=== PATIENT | male | born 1965 | race Caucasian/White ===

== ENCOUNTER 2019-09-14 21:58 | Emergency (ER) | payer MEDICAID, SELFPAY ==
[2019-09-14 22:01] VITALS: BP 122/79; PULSE 112; RESP 20; TEMP 36.6; O2SAT 94; BMI 27.3
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
[2019-09-15 01:45] VITALS: RESP 16
[2019-09-15 03:08] VITALS: RESP 16
[2019-09-15 04:25] VITALS: PULSE 75; RESP 18; O2SAT 96
[2019-09-15 05:04] VITALS: RESP 18
[2019-09-15 06:08] VITALS: PULSE 79; RESP 18; O2SAT 97
[2019-09-15 07:34] VITALS: PULSE 76; RESP 14; O2SAT 97
== END 2019-09-15 07:53 | disposition home or self-care (01) ==
PROVIDERS: Emergency Provider Emergency Medicine
DX: F10.129 Alcohol abuse with intoxication, unspecified (principal); S80.211A Abrasion, right knee, initial encounter; W19.XXXA Unspecified fall, initial encounter; Y92.481 Parking lot as the place of occurrence of the external cause
CPT/HCPCS: 99284

== ENCOUNTER 2019-09-15 11:01 | Emergency (ER) | payer MEDICAID, SELFPAY ==
[2019-09-14 22:01] VITALS: BMI 27.3
[2019-09-15] VITALS (11 sets, daily range): BP systolic 112–138; BP diastolic 71–98; PULSE 71–97; RESP 14–20; TEMP 36.6; O2SAT 94–99; BMI 27.3
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
[2019-09-15] MEDS: Haloperidol Lactate 5 MG/ML Vial IM (11:33)
[2019-09-15] MEDS: LORazepam 2 MG/ML Syringe 1 MG IV (11:40)
[2019-09-15 11:50] LABS: Absolute Lymphocyte Count 2.44 X10^3/uL (0.83-4.51); Absolute Neutrophil Count 1.6 X10^3/uL (2.0-7.7); Basophil# 0.03 X10^3/uL; Basophil% 0.6 % (0-1); Eosinophil# 0.13 X10^3/uL; Eosinophils% 2.6 % (0-5); Hematocrit 38.8 % (40-54); Hemoglobin 12.8 g/dL (13.0-16.5); Lymphocyte # 2.44 X10^3/ul (4.0); Lymphocyte % 49.5 % (19-41); Mean Corpuscular Hgb 29.1 pg (27.0-32.0); Mean Corpuscular Volume 88.2 fL (80-94); Mean Platelet Vol. 10.1 fl (6.2-12.0); Monocyte# 0.69 X10^3/uL; NRBC Flagged by Analyzer 0 % (0-5); Neutrophil # 1.63 X10^3/uL (2.7-7.7); Neutrophil % 33.1 % (47-70); POSITIVE COUNT YES; Platelet Count 72 K/mm3 (150-450); RBC Distribution Width CV 15.7 % (11.6-14.6); RBC Distribution Width SD 49.8 fl (35.1-43.9); White Blood Count 4.9 K/mm3 (4.4-11.0)
[2019-09-15 11:53] LABS: Differential Indicated SCAN CRITERIA MET
[2019-09-15 12:01] LABS: Anion Gap 6 (5-15); BUN 6 mg/dL (7-18); BUN/Creat Ratio 7.2 RATIO (10-20); Calcium,Total 8.2 mg/dL (8.5-10.1); Chloride 111 mmol/L (98-107); Creatinine, Serum 0.84 mg/dL (0.70-1.30); EST Glomerular Filtration Rate 102 mL/min (>60); Est Glom Filt Rate - Afr Amer 123 mL/min (>60); Estimated Creatinine Clearance 111.63 ml/min; Glucose 81 mg/dL (74-106); Potassium 3.2 mmol/L (3.5-5.1); Sodium Level 145 mmol/L (136-145)
--- NOTE | 2019-09-15 12:14 | ED.RN ---
pt more physically calm. drowsy but wakes easily upon light touch, language nonsensical. repeats i hate you and sittingup trying to get out of bed occassionally but lays back down with firm redirection.
[2019-09-15 12:15] LABS: Differential Comment SCANNED; Platelet Estimate MKD DEC (ADEQ)
--- NOTE | 2019-09-15 13:59 | CT_ITS ---
STUDY: CT BRAIN WITHOUT CONTRAST REASON FOR EXAM: Male, 54 years old. FALL, ETOH RADIATION DOSAGE (If Supplied By Facility): CTDIvol = ( 44.99 ) mGy, DLP = ( 846.73 ) mGycm TECHNIQUE: Transaxial CT imaging of the brain was performed without administration of intravenous contrast material. Individualized dose optimization techniques were used for this CT. COMPARISON: No relevant priors. FINDINGS: Normal soft tissue structures. Normal calvarium. Normal size ventricles and extra-axial spaces for the patient''s age. There are areas of decreased attenuation within the white matter tracts of the supratentorial brain, consistent with microvascular disease changes. Normal basal ganglia and thalami. Normal brainstem. Normal cerebellum. There is no intracranial hemorrhage. There are no findings of an acute ischemic infarction. Normal visualized paranasal sinuses. CT/Brain/Head without Contrast IMPRESSION: Chronic involutional changes of the brain. Electronically Signed: Rubén Jacobo MD at 15:15 EDT , Service support ,
--- NOTE | 2019-09-15 13:59 | CT_ITS ---
STUDY: CT CERVICAL SPINE WITHOUT CONTRAST REASON FOR EXAM: Male, 54 years old. FALL, ETOH RADIATION DOSAGE (If Supplied By Facility): CTDIvol = ( 25.50 ) mGy, DLP = ( 514.15 ) mGycm TECHNIQUE: High resolution transaxial imaging was performed without contrast material. Sagittal and coronal images were reconstructed. Individualized dose optimization techniques were used for this CT. COMPARISON: None FINDINGS: Normal craniovertebral junction. Normal anterior atlantoaxial articulation. Normal odontoid process. Normal cervical lordosis. Normal vertebral bodies and posterior osseous elements. C2-3: Normal endplates. Normal disc height and morphology. Normal central canal and intervertebral neuroforamina. C3-4: Normal endplates. Normal disc height and morphology. Normal central canal and intervertebral neuroforamina. C4-5: Normal endplates. Normal disc height and morphology. Normal central canal and intervertebral neuroforamina. C5-6: Normal endplates. Normal disc height and morphology. Normal central canal and intervertebral neuroforamina. C6-7: Normal endplates. Normal disc height and morphology. Normal central canal and intervertebral neuroforamina. C7-T1: Normal endplates. Normal disc height and morphology. Normal central canal and intervertebral neuroforamina. Normal visualized soft tissue structures. CT/Spine Cervical without Contras IMPRESSION: Normal unenhanced CT examination of the cervical spine. Electronically Signed: Rubén Jacobo MD at 15:01 EDT , Service support ,
--- NOTE | 2019-09-15 14:10 | ED.RN ---
At 1340 Pt was moved from room 20 to room 4 to observe patient more close due to high ETOH level. Pt was resting in bed with side rails up and lights off. At approx 1345 Marcus from [employer] saw patient scoot to the end of the bed stand up and slip and fall in his own urine after peeing on the floor. Security notified nursing staff immediately, nursing staff assessment patient for injury and assisted patient back up and into bed. Pt has very unsteady gait due to ETOH intox. Pt states my whole body hurts but denies it being from todays fall. Dr Christina called to bedside to assess patient. Imaging orders were ordered. No obvious signs of injury. Pt cleaned up and linens changed. pt denies further needs.Pt has multiple abrasions and bruises from previous falls. Pt is resting with no signs of distress or injury.
[2019-09-15] MEDS: Ziprasidone IM 20 MG/ML VIAL IM (18:36)
--- NOTE | 2019-09-15 23:14 | ED.DCSUM_ITS ---
- ER Visit Summary Date of Service: 09/15/19 This patient was checked out to me with a CT of the brain and C-spine pending. Test Results: Clinical Impression(s) from Imaging Studies Brain CT 09/15/19 13:59 IMPRESSION: Chronic involutional changes of the brain. Electronically Signed: Rubén Jacobo MD at 15:15 EDT , Service support , Cervical Spine CT 09/15/19 13:59 IMPRESSION: Normal unenhanced CT examination of the cervical spine. Electronically Signed: Rubén Jacobo MD at 15:01 EDT , Service support , Emergency Department Course and Treatment: Patient was agitated and combative with nurses. He was difficult to keep in bed. He is given a dose of Geodon IM. He is now sleeping comfortably. Treatment Plan: Patient will be turned over to the oncoming physician. Assuming that once he is clinically sober he is not suicidal he will be discharged with instructions to follow-up with 180s soon as possible. Disposition: Pending Impression: 1. Alcohol intoxication. 2. Fall. This note was generated with [employer] dictation software. It may contain incorrect words, spelling, and punctuation that were not noted in review of the chart prior to signing ED Disposition - Plan for ED Patient: Instructions: ED INTOXICATION Alcohol Referrals: [facility] [STAFF PHYSICIAN] - As soon as possible
[2019-09-16] VITALS: RESP 17
[2019-09-16 01:00] VITALS: RESP 16
[2019-09-16 02:00] VITALS: RESP 16
[2019-09-16 03:00] VITALS: RESP 16
[2019-09-16] MEDS: LORazepam 2 MG/ML Syringe 1 MG IV (04:23)
[2019-09-16] MEDS: Ondansetron 4 MG/2 ML Vial IV (04:23)
[2019-09-16 04:28] VITALS: BP 137/107; PULSE 125; RESP 18; O2SAT 94
--- NOTE | 2019-09-16 04:43 | ED.RN ---
Pt is discharged and wishes to sleep until 7am. Rad rn said okay to sleep until 7am
== END 2019-09-16 04:54 | disposition home or self-care (01) ==
LOC: ED 12:57
PROVIDERS: Emergency Provider Emergency Medicine
DX: F10.239 Alcohol dependence with withdrawal, unspecified (principal); W19.XXXA Unspecified fall, initial encounter
CPT/HCPCS: 36415; 70450; 72125; 80048; 80320; 85025; 96372; 96374; 96375; 96376; 99284; A4216; G0480; J2405; J3486

== ENCOUNTER 2019-09-16 07:42 | Inpatient (IN) | payer MEDICAID, SELFPAY ==
[2019-09-15 11:02] VITALS: BMI 27.3
[2019-09-16] VITALS (9 sets, daily range): BP systolic 100–140; BP diastolic 69–99; PULSE 82–105; RESP 14–19; TEMP 36.3–37; O2SAT 93–100; BMI 27.8; BMI 27.2
--- NOTE | 2019-09-16 07:56 | ED.DCSUM_ITS ---
- ER Visit Summary Date of Service: 09/16/19 Chief Complaint: Alcohol intoxication History of Present Illness: The patient is a 54 M who presents with alcohol intoxication that became worse today. Patient was seen here yesterday and discharged early this morning. Patient went to the gas station and started drinking more alcohol. Patient states he drinks a lot of alcohol daily but is unable to quantify. Patient currently states he is interested in detox. Patient states he feels shaky. Patient denies any fevers or chills. Patient denies any nausea or vomiting. Patient denies any chest pain or shortness of breath. Patient denies any suicidal ideations or plans. Physical Examination: Vital signs are stable except for mild tachycardia of 105. Patient is afebrile. Patient is in no acute distress. Patient does appear to be intoxicated. Oral mucosa is pink and moist. Neck is supple. Trachea is midline. There is no JVD. Heart was regular and slightly tachycardic. Lungs are clear and equal bilaterally. Abdomen is soft. Bowel sounds are normal. There is no tenderness. Extremities are intact. There is no calf tenderness or edema. Cranial nerves II through XII are grossly intact. There are no focal motor or sensory deficits. Test Results: CBC showed a slightly low platelet count 71. Potassium was 3.6. Alk phos was slightly elevated at 125, ALT was 67, and AST was 113. Serum alcohol level was elevated at 394. Urine tox urine was positive for barbiturates and benzodiazepines. Emergency Department Course and Treatment: Patient was given a dose of IV and oral potassium. Patient was also given a dose of Ativan and phenobarbital. Patient is agreeable to being admitted for alcohol detox. Case was discussed with the hospitalist, Dr. Santos. She requested obtaining a magnesium level. This was ordered. She will admit the patient to her service. Patient understood and was agreeable with the plan. All questions were answered. Disposition: Admit to hospital Impression: 1. Alcohol withdrawal This note was generated with [employer] dictation software. It may contain incorrect words, spelling, and punctuation that were not noted in review of the chart prior to signing ED Disposition - Plan for ED Patient: Disposition: Acute Care Hospital [facility] Diagnosis: Alcohol withdrawal Referrals: Care Physician,No Primary [Primary Care Provider] -
[2019-09-16] MEDS: 0.9% Normal Saline 1,000 ML 1000 ML IV (08:17)
[2019-09-16 08:42] LABS: ALB/GLOB Ratio 0.9 RATIO (0.9-2.4); AST(SGOT) 113 U/L (15-37); Alanine Aminotransfer ALT/SGPT 67 U/L (16-61); Albumin, Serum 3.8 g/dL (3.2-5.0); Alkaline Phosphatase 125 U/L (45-117); Anion Gap 8 (5-15); BUN 5 mg/dL (7-18); BUN/Creat Ratio 5.1 RATIO (10-20); Calcium,Total 8.4 mg/dL (8.5-10.1); Chloride 107 mmol/L (98-107); Creatinine, Serum 0.99 mg/dL (0.70-1.30); EST Glomerular Filtration Rate 84 mL/min (>60); Est Glom Filt Rate - Afr Amer 102 mL/min (>60); Estimated Creatinine Clearance 91.91 ml/min; Globulin 4.1 g/dL (2.2-4.2); Glucose 135 mg/dL (74-106); Lipase 239 U/L (73-393); Potassium 2.6 mmol/L (3.5-5.1); Protein, Total 7.9 g/dL (6.4-8.2); Sodium Level 143 mmol/L (136-145)
[2019-09-16 08:53] LABS: Absolute Lymphocyte Count 1.34 X10^3/uL (0.83-4.51); Absolute Neutrophil Count 1.6 X10^3/uL (2.0-7.7); Basophil# 0.01 X10^3/uL; Basophil% 0.3 % (0-1); Eosinophil# 0.04 X10^3/uL; Eosinophils% 1.1 % (0-5); Hematocrit 38.5 % (40-54); Hemoglobin 12.5 g/dL (13.0-16.5); Lymphocyte # 1.34 X10^3/ul (4.0); Lymphocyte % 37.2 % (19-41); Mean Corp Hgb Conc 32.5 g/dL (32-36); Mean Corpuscular Hgb 29.1 pg (27.0-32.0); Mean Corpuscular Volume 89.5 fL (80-94); Mean Platelet Vol. 10.4 fl (6.2-12.0); Monocyte# 0.58 X10^3/uL; Monocyte% 16.1 % (0-10); NRBC Flagged by Analyzer 0 % (0-5); Neutrophil # 1.62 X10^3/uL (2.7-7.7); POSITIVE COUNT YES; Platelet Count 71 K/mm3 (150-450); RBC Distribution Width CV 15.9 % (11.6-14.6); RBC Distribution Width SD 51.6 fl (35.1-43.9); White Blood Count 3.6 K/mm3 (4.4-11.0)
[2019-09-16 08:54] LABS: Amphetamine Urine VISTA NEGATIVE (<1000 ng/mL); Barbiturate Urine VISTA POSITIVE (< 200 ng/mL); Benzodiazepine Urine VISTA POSITIVE (< 200 ng/mL); Cocaine Urine VISTA NEGATIVE (< 300 ng/mL); Ecstacy Urine VISTA NEGATIVE (< 500 ng/mL); Methadone Urine VISTA NEGATIVE (< 300 ng/mL); PCP Urine VISTA NEGATIVE (< 25 ng/mL); THC Urine VISTA NEGATIVE (< 50 ng/mL); Vista UDS pH Range 6
[2019-09-16] MEDS: LORazepam 2 MG/ML Syringe 1 MG IV ×2 (08:59→09:38)
[2019-09-16] MEDS: Potassium Chloride 10mEq/100mL 10 MEQ/100 ML IV.SOLN. 100 MEQ IV BOLUS ×2 (09:03→14:51)
[2019-09-16 09:13] LABS: Differential Indicated SCAN CRITERIA MET
[2019-09-16] MEDS: Phenobarbital 32.4 MG Tablet PO (09:34)
[2019-09-16 09:43] LABS: Red Cell Morphology NORM C+C NORMAL (NORM C&C)
[2019-09-16 09:44] LABS: Platelet Estimate MOD DEC (ADEQ)
--- NOTE | 2019-09-16 09:49 | ED.RN ---
RAMP AGREEMENT READ TO PT, PT AGREEABLE AND SIGNED FORM.
--- NOTE | 2019-09-16 10:33 | NURSING ---
DR MCCARTHY FOR DR WILHELM
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
--- NOTE | 2019-09-16 10:39 | NURSING ---
MED SURG PAINTSIL ALCOHOL WITHDRAWAL, HYPOKALEMIA
--- NOTE | 2019-09-16 11:05 | CM.ED ---
SOCIAL WORK Patient admitted to [facility] for alcohol withdraw management. Left message for Cecile at [facility] to update on admission. Albert Jeter, COPRA PROCESSOR, SIGN PAINTER
--- NOTE | 2019-09-16 11:48 | PCA ---
called a doctor office in [place] found his doctor office deanne simms they are going to call me or fax his information to me of what medicine patient is on
[2019-09-16] MEDS: Phenobarbital 32.4 MG Tablet 97.2 MG PO ×2 (12:19→17:08)
[2019-09-16] MEDS: Ibuprofen 600 MG Tablet PO (12:19)
[2019-09-16] MEDS: Gabapentin 300 MG Capsule PO (12:20)
[2019-09-16] MEDS: 0.9% Saline Lock 10 ML Syringe IV (14:51)
[2019-09-16] MEDS: LORazepam 2 MG/ML Syringe IV (14:51)
[2019-09-16 16:00] LABS: Anion Gap 4 (5-15); BUN 4 mg/dL (7-18); BUN/Creat Ratio 5.3 RATIO (10-20); Calcium,Total 8.6 mg/dL (8.5-10.1); Chloride 111 mmol/L (98-107); Creatinine, Serum 0.76 mg/dL (0.70-1.30); EST Glomerular Filtration Rate 114 mL/min (>60); Est Glom Filt Rate - Afr Amer 138 mL/min (>60); Estimated Creatinine Clearance 123.38 ml/min; Glucose 103 mg/dL (74-106); Potassium 3.3 mmol/L (3.5-5.1); Sodium Level 147 mmol/L (136-145)
[2019-09-16] MEDS: Meloxicam 15 MG Tablet PO (17:12)
--- NOTE | 2019-09-16 19:10 | NURSING ---
Wanting to leave explanation given to remain for safety and refuses. He is adamant about leaving and wanting to catch his bus. notified and R signed AMA papers he was given directions to [facility] station.
--- NOTE | 2019-09-17 14:06 | DCINST_ITS ---
- Discharge Diagnoses Reason(s) for Visit for Discharge Instructions: Request for medical stabilisation You will use the following diet at home:: Regular Your food should be the consistency of: Regular Your liquids should be the consistency of: Regular/Thin Discharge Activity: Return to Normal Activity Allergies/Adverse Reactions: Allergies No Known Allergies Allergy (Verified 09/16/19 07:43) Medications to take at Discharge Acetaminophen [Tylenol] 650 mg PO Q6H PRN PRN 09/16/19 Amlodipine [Norvasc] 10 mg PO DAILY 09/16/19 Etodolac 400 mg PO BID 09/16/19 Gabapentin 800 mg PO 4X/DAY 09/16/19 Methocarbamol [Robaxin-750] 750 mg PO Q4H 09/16/19 Omeprazole 20 mg PO BIDCM 09/16/19 Quetiapine Fumarate [Seroquel] 100 mg PO DAILY 09/16/19 busPIRone [Buspar] 15 mg PO BID 09/16/19 traMADol [Ultram (G)] 50 mg PO Q8H PRN PRN 09/16/19 Primary Care Physician: Care Physician,No Primary [NON-STAFF] - Test Results: Test results from this visit will be discussed in further detail at your follow- up appointment, if applicable. Proposed Discharge Date: 09/16/19
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
== END 2019-09-16 19:20 | disposition left against medical advice (07) | DRG 770 ==
LOC: ED 09:34 → MS3 11:58
PROVIDERS: Admitting Provider Internal Medicine; Emergency Provider Emergency Medicine; Visit Provider Internal Medicine
DX: F10.239 Alcohol dependence with withdrawal, unspecified (principal); F10.229 Alcohol dependence with intoxication, unspecified; T51.0X1A Toxic effect of ethanol, accidental (unintentional), initial encounter; Y90.8 Blood alcohol level of 240 mg/100 ml or more; E87.6 Hypokalemia; S80.212A Abrasion, left knee, initial encounter; S80.211A Abrasion, right knee, initial encounter; W19.XXXA Unspecified fall, initial encounter; Z91.81 History of falling; D69.59 Other secondary thrombocytopenia; K76.9 Liver disease, unspecified; M19.90 Unspecified osteoarthritis, unspecified site; Z59.0 Homelessness; Y92.481 Parking lot as the place of occurrence of the external cause; Z79.899 Other long term (current) drug therapy
CPT/HCPCS: 36415; 70450; 72125; 80048; 80053; 80307; 80320; 83690; 83735; 85025; 96372; 96374; 96375; 96376; 99282; 99284; 99285; J7030; J7040; A4216; G0480; J2405; J3486

== ENCOUNTER 2019-09-18 07:58 | Emergency (ER) | payer MEDICAID, SELFPAY ==
[2019-09-16 11:26] VITALS: BMI 27.2
[2019-09-18 08:00] VITALS: BP 159/84; PULSE 114; RESP 15; TEMP 36.2; O2SAT 97; BMI 25.7
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
[2019-09-18] MEDS: Ondansetron ODT 4 MG Tablet PO (08:41)
[2019-09-18 08:44] VITALS: PULSE 89; RESP 16; O2SAT 99
--- NOTE | 2019-09-18 08:46 | ED.RN ---
REVIEWED D/C INSTRUCTIONS, FOLLOW UP CARE, AND S/S THAT WOULD WARRANT A RETURN TO THE ED WITH PT. PT VERBALIZED AN UNDERSTANDING AND DENIES FURTHER QUESTIONS FOR THIS RN. PT SKIN P/W/D, RESP EVEN AND UNLABORED, PT A&O X 3, NO DISTRESS NOTED. PT AMBULATED OUT OF ED, GAIT STEADY.
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
== END 2019-09-18 08:47 | disposition home or self-care (01) ==
LOC: ED 08:18
PROVIDERS: Emergency Provider Emergency Medicine
DX: R11.0 Nausea (principal); F10.10 Alcohol abuse, uncomplicated
CPT/HCPCS: 99282

== ENCOUNTER 2019-09-18 12:43 | Emergency (ER) | payer MEDICAID, SELFPAY ==
[2019-09-18 08:00] VITALS: BMI 25.7
[2019-09-18 12:45] VITALS: BP 113/79; PULSE 73; RESP 18; TEMP 36.8; O2SAT 97; BMI 28.7
[2019-09-18 13:44] VITALS: RESP 16
[2019-09-18 14:00] VITALS: RESP 16
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
[2019-09-18 15:00] VITALS: RESP 14
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
--- NOTE | 2019-09-18 17:15 | CM.ED ---
Social Work Attempted to contact patient uncle on multiple times. No answer. Met with patient further in room. Patient aware of [facility] services and plans to discharge to the [facility]. Patient states let me get cleaned up. Patient did need to be oriented to the time of day. 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 Patient is oriented to self and current location. Patient agreeable with plan to go to the [facility] and plans to walk. This social psychologist offering to provide directions, patient states I can get there. Patient voicing no further needs and leaving the emergency department. Updated medical team. Juan SOLOMON, SCOTTY
== END 2019-09-18 17:37 | disposition home or self-care (01) ==
PROVIDERS: Emergency Provider Emergency Medicine
DX: F10.10 Alcohol abuse, uncomplicated (principal)
CPT/HCPCS: 99285